=== PATIENT | male | born 1990 | race African-American/Black ===

== ENCOUNTER 2016-07-18 06:57 | Emergency (ER) | payer OTHER ==
[~2016-07-18 06:57] MED LIST: CEFUROXIME250 MG PO; CIPRO PO; DOXYCYCLINE PO; FLEXERIL PO; FLEXERIL10 MG PO; HYDROCODON-ACE1 EACH PO; LORTAB 5/500 TA1 TA1 PO; NAPROXEN PO; PREDNISONE10 MG PO; VIBRAMYCIN100 M1 PO; VOLTAREN75 MG PO
== END 2016-07-18 07:20 | disposition home or self-care (01) ==
LOC: CED 06:57
DX: S97.81XA Crushing injury of right foot, initial encounter (principal); F17.200 Nicotine dependence, unspecified, uncomplicated; X58.XXXA Exposure to other specified factors, initial encounter; Y92.009 Unspecified place in unspecified non-institutional (private) residence as the place of occurrence of the external cause
CPT/HCPCS: 99283